=== PATIENT | female | born 1950 | race Caucasian/White ===

== ENCOUNTER 2017-10-25 21:50 | Emergency (ER) | payer MEDICARE ==
--- NOTE | 2017-10-25 22:52 | EDM.PDOC ---
ED HPI GENERAL MEDICAL PROBLEM - General Chief Complaint: Allergic Reaction Stated Complaint: [facility] Time Seen by Provider: 10/25/17 22:48 Source of Information: Reports: Patient, Family, RN Notes Reviewed History Limitations: Reports: No Limitations - History of Present Illness INITIAL COMMENTS - FREE TEXT/NARRATIVE: 67-year-old female presents emergency department today following an allergic reaction, she was given 50 mg of Benadryl in the ambulance, she states all of her symptoms now have resolved, she describes her reaction as burning and itching in her feet which spread up to her legs however she had no shortness of breath no difficulty swallowing - Related Data Allergies Allergy/AdvReac Type Severity Reaction Status Date / Time Penicillins Allergy Rash Verified 10/25/17 22:13 Home Meds: Home Meds NK [No Known Home Meds] 10/25/17 [History] Past Medical History Gastrointestinal History: Reports: Chronic Constipation Oncologic (Cancer) History: Reports: Basal Cell Carcinoma - Past Surgical History Female Surgical History: Reports: Hysterectomy Social & Family History - Family History Family Medical History: Noncontributory - Tobacco Use Smoking Status *Q: Current Every Day Smoker Years of Tobacco use: 5 Packs/Tins Daily: 1 Used Tobacco, but Quit: No Second Hand Smoke Exposure: Yes - Caffeine Use Caffeine Use: Reports: Coffee, Tea - Alcohol Use Days Per Week of Alcohol Use: 0 - Recreational Drug Use Recreational Drug Use: No ED ROS ALLERGIC REACTION - Review of Systems Review Of Systems: See Below Constitutional: Reports: No Symptoms HEENT: Reports: No Symptoms Respiratory: Reports: No Symptoms Cardiovascular: Reports: No Symptoms GI/Abdominal: Reports: No Symptoms : Reports: No Symptoms Musculoskeletal: Reports: No Symptoms Skin: Reports: Pruritis (Now resolved) Neurological: Reports: No Symptoms ED EXAM GENERAL NO PERIP PULSE - Physical Exam Exam: See Below Exam Limited By: No Limitations General Appearance: Alert, WD/WN, No Apparent Distress Respiratory/Chest: No Respiratory Distress, Lungs Clear, Normal Breath Sounds, No Accessory Muscle Use Cardiovascular: Regular Rate, Rhythm, No Murmur GI/Abdominal: Soft, Non-Tender Skin Exam: Warm, Dry, Intact, Normal Color, No Rash Course - Vital Signs Last Recorded V/S: Last Vital Signs Temp 97.8 F 10/25/17 22:09 Pulse 98 10/25/17 22:09 Resp 16 10/25/17 22:09 BP 134/70 10/25/17 22:09 Pulse Ox 98 10/25/17 22:09 Departure - Departure Time of Disposition: 22:51 Disposition: Home, Self-Care 01 Condition: Good Clinical Impression: Allergic reaction Qualifiers: Encounter type: initial encounter Qualified Code(s): T78.40XA - Allergy, unspecified, initial encounter - Discharge Information Referrals: PCP,None [Primary Care Provider] - Additional Instructions: Use Benadryl as needed for symptomatic relief 25 mg every 4-6 hours, use 50 mg if you get this reaction again, Please followup with your primary care provider in 3-5 days if not better, please call return to the emergency department with worsening of symptoms. - Assessment/Plan Plan: Assessment Acuity = acute Site and laterality = allergic reaction Etiology = unclear etiology Manifestations = none Location of injury = Home Lab values = none Plan Continue to use Benadryl as needed for symptomatic relief follow-up with primary care 3-5 days for reevaluation if not better This note was dictated using [employer] voice recognition software please call with any questions on syntax or daxa.
== END 2017-10-25 23:00 | disposition home or self-care (01) ==
LOC: JP.ED 21:50
DX: T78.40XA Allergy, unspecified, initial encounter (principal); F17.210 Nicotine dependence, cigarettes, uncomplicated; Z88.0 Allergy status to penicillin; Z90.710 Acquired absence of both cervix and uterus
CPT/HCPCS: 99282; 99284